=== PATIENT | male | born 1975 | race Caucasian/White ===

== ENCOUNTER 2018-04-18 12:28 | Emergency (ER) | payer MEDICAID ==
[~2018-04-18] VITALS: Ht 175.3 cm; Wt 85.2 kg
[2018-04-18 13:15] LABS: CULTURE INDICATED? YES; MICROSCOPIC INDICATED
[2018-04-18] MEDS ORDERED: SODIUM CHLORIDE FLUSH 10ML SYR IVF ONE (14:30)
[2018-04-18] MEDS ORDERED: DIAZEPAM 5 MG TABLET PO ONE (14:30)
[2018-04-18] MEDS ORDERED: ONDANSETRON 2MG/ML, 2ML IVPush ONE (14:30)
[2018-04-18] MEDS ORDERED: KETOROLAC 30 MG/1 ML IVPush ONE (14:30)
[2018-04-18] MEDS ORDERED: ONDANSETRON ODT 4 MG ONE (14:41)
[2018-04-18] MEDS ORDERED: KETOROLAC 30 MG/1 ML ONE (14:41)
[2018-04-18] MEDS ORDERED: DIAZEPAM 5 MG TABLET ONE (14:42)
[2018-04-18 14:55] LABS: ALANINE AMINOTRANSFERASE 141 U/L (12-78); ANION GAP 8 mmol/L (5-15); CALCIUM 9.4 mg/dL (8.5-10.1); CHLORIDE 103 mmol/L (98-107); CREATININE 0.68 mg/dL (0.7-1.3)
[2018-04-18 14:57] LABS: ALKALINE PHOSPHATASE 197 U/L (45-117); BILIRUBIN,TOTAL 1.3 mg/dL (0.2-1.0); TOTAL PROTEIN 8.1 g/dL (6.4-8.2)
[2018-04-18] MEDS ORDERED: KETOROLAC 30 MG/1 ML IM ONE (15:00)
[2018-04-18 15:19] LABS: MEAN CORPUSCULAR HEMOGLOBIN 34.6 pg (27.5-34.5); MEAN CORPUSCULAR HGB CONC 34.3 g/dL (33.2-36.2); MEAN CORPUSCULAR VOLUME 100.7 fL (81-97); MEAN PLATELET VOLUME 10.7 fL (7.4-10.4); PLATELET COUNT 68 x10^3/uL (130-400); RED BLOOD COUNT 4.02 x10^6/uL (4.38-5.82); RED CELL DISTRIBUTION WIDTH 14.8 % (9.4-14.8)
[2018-04-18 15:21] LABS: BASOPHILS # (AUTO) 0.02 x10^3/uL (0-0.1); BASOPHILS % (AUTO) 1 % (0-1); EOSINOPHILS # (AUTO) 0.03 x10^3/uL (0-0.4); EOSINOPHILS % (AUTO) 1 % (1-7); LYMPHOCYTES # (AUTO) 0.93 x10^3/uL (1-3.4); LYMPHOCYTES % (AUTO) 28 % (22-44); MD SCAN; MONOCYTES # (AUTO) 0.51 x10^3/uL (0.2-0.8); MONOCYTES % (AUTO) 15 % (2-9); NEUTROPHILS # (AUTO) 1.83 x10^3/uL (1.8-6.8); NEUTROPHILS % (AUTO) 55 % (42-75)
[2018-04-18 17:09] VITALS: BP 137/87
== END 2018-04-18 18:03 | disposition home or self-care (01) ==
LOC: ED 14:44
DX: R10.9 Unspecified abdominal pain (principal); F10.239 Alcohol dependence with withdrawal, unspecified; F17.200 Nicotine dependence, unspecified, uncomplicated
CPT/HCPCS: 36415; 74176; 76700; 80053; 81001; 83690; 85025; 87086; 96372; 99285; J1885